=== PATIENT | male | born 1965 | race Caucasian/White ===

== ENCOUNTER → 2017-09-07 | Outpatient (CLI) | payer OTHER ==
[~2017-09-07] MED LIST: ADDERALL 20 MG20 MG PO; ANDROGEL75 GM TD; ASPIR 8181 MG PO; ASPIRIN325 PO; FLOMAX0.4 MG PO; HYDROCODON-ACE1 EAC7 PO; IMDUR 30 MG TAB30 M1 PO; LIPITOR 20 MG T20 M1 PO; LISINOPRIL10 MG PO; LOPRESSOR25 PO; MIRALAX17 GM PO; NOHOMEMEDICATIONS; NORCO 5-325 TA1 EACH PO; ONDANSETRON HCL4 M2 PO; PROBIOTIC1 EAC1 PO; VERAPAMIL ER120 MG PO; ZORVOLEX18 MG PO
== END ==
LOC: RAD 16:00
DX: R06.02 Shortness of breath (principal); Z95.1 Presence of aortocoronary bypass graft